=== PATIENT | female | born 2000 | race Caucasian/White ===

== ENCOUNTER 2020-12-08 21:48 | Observation (INO) | payer OTHER, SELFPAY ==
--- NOTE | 2020-12-08 20:52 | OBADM ---
This patient, Amber Sanchez, admitted to the OB room OB Post 117 for observation. Patient/family oriented to hospital policies and general routines including ID bracelet, bed and alarms, visiting hours, pain management, procedures, bathroom and other care routines, personal items, smoking policy, room service/diet, and visiting hours. Patient/Family are encouraged to report perceived risks to care and to ask questions if they do not understand what they are told or what they should do.
--- NOTE | 2020-12-08 21:05 | PC.NURSE ---
pt states she has been having episode of feeling like she is going to pass out. States she feel hot and then she has tightness in her chest. Pt states she is due 12/12/2020 but has not had care for the last 2 months because she was trying to switch doctors. Pt states she was being seen at Dr. Cadet office at [facility].
[2020-12-08 21:33] VITALS: RESP 18; TEMP 36.8
[2020-12-08 21:49] VITALS: PULSE 92; O2SAT 98
--- NOTE | 2020-12-08 21:49 | ECG_ITS ---
Measurements Intervals [place] Rate: 103 P: 46 KS: 128 QRS: 49 QRSD: 94 T: 30 QT: 345 QTc: 454 Interpretive Statements SINUS TACHYCARDIA INCOMPLETE RIGHT BUNDLE BRANCH BLOCK BORDERLINE ECG Electronically Signed On 12-09-2020 7:32:43 CDT by Casey Solis D.O.
[2020-12-08 21:54] VITALS: PULSE 102; O2SAT 98
[2020-12-08 22:00] VITALS: BP 118/76; PULSE 101
[2020-12-08 22:10] LABS: Basophils Percent Auto 0.4 % (0.2-1.2); Eosinophils Absolute Auto 0.1 K/mm3 (0-0.3); Eosinophils Percent Auto 1.4 % (0-4.4); Hemoglobin 12.3 g/dL (12.0-15.0); Immature Granulocyte Absolute 0.04 K/mm3 (0.00-0.031); Immature Granulocyte Percent A 0.4 % (0-0.5); Lymphocytes Absolute Auto 1.61 K/mm3 (0.9-3.2); Lymphocytes Percent Auto 16.8 % (18.3-44.2); Mean Corpuscular HGB Conc 33.2 g/dl (32-36); Mean Corpuscular Hemoglobin 31.1 pg (26-34); Mean Corpuscular Volume 93.7 fl (80-100); Mean Platelet Volume 11.4 fl (7.4-10.4); Monocytes Absolute Auto 0.6 K/mm3 (0.1-0.6); Monocytes Percent Auto 5.7 % (2.6-8.5); Neutrophils Absolute Auto 7.2 K/mm3 (1.3-6.7); Neutrophils Percent Auto 75.3 % (45.5-73.1); Platelet Count Result 213 k/mm3 (150-375); Red Blood Count 3.95 M/mm3 (4.2-5.4); Red Cell Distribution Width 12.3 % (11.5-14.5); White Blood Count 9.6 K/mm3 (4.5-10.0)
[2020-12-08 22:11] VITALS: BMI 32.6
--- NOTE | 2020-12-08 22:11 | PC.NURSE ---
RN called [facility] to obtain record. Per Roberta LEIJA they have no records for this pt.
[2020-12-08 22:15] VITALS: BP 120/73; PULSE 104
[2020-12-08 22:20] LABS: Alanine Aminotransferase 11 U/L (4-35); Albumin Level 3.2 g/dL (3.5-5.1); Alkaline Phosphatase 169 U/L (38-126); Anion Gap 4 mmol/L (8-16); Aspartate Amino Transferase 16 U/L (14-36); Bilirubin,Total < 0.1 mg/dL (0.2-1.3); Blood Urea Nitrogen 9 mg/dL (7-17); Calcium 8.9 mg/dL (8.4-10.2); Carbon Dioxide 23 mmol/L (22-30); Chloride 109 mmol/L (98-107); Estimated CRCL calculation 199 ml/min; Estimated Glomerular Filt Rate > 60; Glucose 85 mg/dL (65-105); Potassium 3.5 mmol/L (3.4-5.0); Sodium 136 mmol/L (137-145)
--- NOTE | 2020-12-08 22:39 | PC.NURSE ---
Updated Dr.Dalla Mitchell on pt lab results. Orders received to Discharge pt and have her call his office on Friday.
[2020-12-08 22:45] VITALS: BP 107/72; PULSE 95
--- NOTE | 2020-12-12 15:22 | PM.OBTRLD ---
OB - Triage/Final Diagnosis Visit Information Reason for evaluation: threatened labor Comments/Additional reasons for admission: I have assessed the risk for this patient, Amber Sanchez, and determined that she would benefit from observation care. Evaluation Laboratory results: Laboratory Tests 12/08/20 12/08/20 22:03 22:03 WBC 9.6 RBC 3.95 L Hgb 12.3 Hct 37.0 MCV 93.7 MCH 31.1 MCHC 33.2 RDW 12.3 Plt Count 213 MPV 11.4 H Immature Gran % (Auto) 0.4 Neut % (Auto) 75.3 H Lymph % (Auto) 16.8 L [place] % (Auto) 5.7 Eos % (Auto) 1.4 Baso % (Auto) 0.4 Lymph # (Auto) 1.61 [place] # (Auto) 0.6 Eos # (Auto) 0.1 Baso # (Auto) 0.0 Abs Immat Gran (auto) 0.04 H Absolute Neuts (auto) 7.2 H Absolute Nucleated RBC 0.0 Nucleated RBC % 0.0 Sodium 136 L Potassium 3.5 Chloride 109 H Carbon Dioxide 23 Anion Gap 4 L BUN 9 Creatinine 0.40 L Estim Creat Clear Calc 199 Estimated GFR > 60 Glucose 85 Calcium 8.9 Total Bilirubin < 0.1 L AST 16 ALT 11 Alkaline Phosphatase 169 H Total Protein 6.0 L Albumin 3.2 L
== END 2020-12-08 22:58 | disposition home or self-care (01) ==
LOC: ANHOBPP 21:48
PROVIDERS: Admitting Provider Obstetrics & Gynecology; PCP Internal Medicine; Visit Provider Obstetrics & Gynecology
DX: O47.9 False labor, unspecified (principal); Z3A.00 Weeks of gestation of pregnancy not specified
CPT/HCPCS: 36415; 80053; 85025; 93005; G0378; G0379

== ENCOUNTER 2020-12-10 07:52 | Inpatient (IN) | payer OTHER, SELFPAY ==
[2020-12-09 20:30] VITALS: BP 120/76; PULSE 84; RESP 16; TEMP 36.9
[2020-12-10] VITALS (58 sets, daily range): BP systolic 98–139; BP diastolic 52–95; PULSE 88–136; RESP 16; TEMP 36.6–36.9; O2SAT 96–100; BMI 33.0
--- NOTE | 2020-12-10 09:03 | PM.IMHP ---
H&P: HPI History of Present Illness Date/Time: 12/10/20 09:03 19-year-old 2 para 1 whose EDC is 427 by her history admitted through the ER as a walk-in with ruptured membranes at 5:30 a.m.. Her care has apparently been and all none. The only results we have or on ultrasound at 21 weeks consistent with her stated due date she does not know her group B strep status. She has had 1 previous term delivery Chief Complaint: labor at term Review of Systems Review of Systems: All systems reviewed & are unremarkable except as noted in HPI and below PMFSH Family History Family History Grandparent FH: kidney cancer Heart disease Diabetes mellitus Mother Diabetes mellitus Social History Social History Smoking packs per day: 0.5 Smoking cigarettes per day: 10.0 Years smoked: 7 Smoking pack-years: 3.50 Smoking status: Current every day smoker Tobacco type: cigarettes Second hand tobacco smoke exposure: Yes Substance use: never Spiritual care concerns: No Meds Home Medications and Allergies Home Medications Medication Instructions Recorded Confirmed Type Classic 1 tablet PO DAILY 12/08/20 12/08/20 History Allergies Allergy/AdvReac Type Severity Reaction Status Date / Time latex Allergy Hives Verified 12/09/20 15:11 Vital Signs Vital Signs - 24 hr 12/10/20 08:11 12/10/20 08:15 12/10/20 08:30 Temperature 98 F Pulse Rate 110 H 113 H Blood Pressure 128/77 113/86 12/10/20 08:45 12/10/20 09:00 Temperature Pulse Rate 100 99 Blood Pressure 98/79 L 119/76 Exam Const: General: no acute distress Eyes: General: appearance normal, both eyes and all related structures Neck: Neck: supple and no JVD Thyroid: thyroid normal Resp: Effort & Inspection: normal respiratory effort Auscultation: clear to auscultation bilaterally Cardio: Rate: regular rate Rhythm: regular rhythm GI: Inspection: non-distended GI Palp: Yes Soft to palpation, No Tenderness to palpation present (GI) and No Guarding due to palpation present (GI) Auscultation: normal bowel sounds : External Female Exam: normal external appearance and other (clear fluid) Speculum Exam - Cervix: Cervical os closed ( cervix 4cm by RN exam. FHTs reassuring contractions are irregular) Skin: General skin exam: no rashes or lesions noted Extrem: General: normal to inspection and no edema Psych: Mental Status: mental status grossly normal Affect: normal affect Assessment and Plan Additional Plan impression: Term with spontaneous rupture of membranes and active labor. Plan: Spontaneous vaginal delivery is expected. Group B strep prophylaxis undertaken secondary to unknown status. She states she would like to have an epidural
[2020-12-10 09:07] LABS: Basophils Percent Auto 0.3 % (0.2-1.2); Eosinophils Absolute Auto 0.1 K/mm3 (0-0.3); Eosinophils Percent Auto 0.8 % (0-4.4); Hematocrit 39.1 % (37.0-47.0); Hemoglobin 12.8 g/dL (12.0-15.0); Immature Granulocyte Absolute 0.08 K/mm3 (0.00-0.031); Immature Granulocyte Percent A 0.6 % (0-0.5); Lymphocytes Absolute Auto 1.51 K/mm3 (0.9-3.2); Lymphocytes Percent Auto 11.6 % (18.3-44.2); Mean Corpuscular HGB Conc 32.7 g/dl (32-36); Mean Corpuscular Hemoglobin 30.8 pg (26-34); Mean Platelet Volume 11.1 fl (7.4-10.4); Monocytes Absolute Auto 0.7 K/mm3 (0.1-0.6); Monocytes Percent Auto 5.4 % (2.6-8.5); Neutrophils Absolute Auto 10.6 K/mm3 (1.3-6.7); Neutrophils Percent Auto 81.3 % (45.5-73.1); Platelet Count Result 209 k/mm3 (150-375); Red Blood Count 4.16 M/mm3 (4.2-5.4); Red Cell Distribution Width 12.3 % (11.5-14.5); White Blood Count 13.1 K/mm3 (4.5-10.0)
[2020-12-10] MEDS: LACTATED RINGERS 1,000 ML 125 ML IV CONT ×2 (09:08→09:44)
[2020-12-10] MEDS: AMPICILLIN 2 GM/NS 100 ML 2 GM/100 ML BAG IVPB (09:09)
[2020-12-10 09:57] LABS: HIV 1/2 Ab P24 Ag Result Negative (Negative)
[2020-12-10 10:13] LABS: Rubella IgG Antibody 11.1 IU/ML
[2020-12-10 10:16] LABS: Hepatitis B Surface Antigen Negative (Negative)
[2020-12-10 11:08] LABS: Amphetamine Screen Urine Negative (Negative); Barbiturate Screen Urine Negative (Negative); Benzodiazepines Screen Urine Negative (Negative); Cannabinoid Screen Urine Negative (Negative); Cocaine Screen Urine Negative (Negative); Methadone Screen Urine Negative (Negative); Opiate Screen Urine Negative (Negative); Phencyclidine Screen Urine Negative (Negative)
[2020-12-10] MEDS: OXYTOCIN 30 UNITS/NS 500 ML 30 UNITS/500 ML BAG 999 UNITS IV CONT (11:32)
--- NOTE | 2020-12-10 11:40 | PM.OBPRVD ---
OB - Delivery Note Procedure Delivery date: 12/10/20 events: No Care Intrapartal events: None Induction method: none Delivery monitor: external FHT Route of delivery: Episiotomy description: None Laceration Description: None Specimen: No Quantitative Blood Loss (ml): 58 Anesthesia type: Epidural Disposition: floor [place] Baby Date of : 12/10/20 Time of : 11:29 Weeks of gestation at delivery: 39 Infant gender: Male Weight (pounds): 8 Weight (ounces): 12 position: Right Occiput Anterior Placenta delivery description: Spontaneous cord vessel description: 3 Vessels score one minute: 8 score five minutes: 9 Narrative: amp x 1 for unknown gbs
[2020-12-10] MEDS: OXYTOCIN 30 UNITS/NS 500 ML 30 UNITS/500 ML BAG 125 UNITS IV CONT (12:06)
--- NOTE | 2020-12-10 14:09 | PC.NURSE ---
Patient transferred to post room #284 per wheelchair from labor and delivery. Support person present. Oriented to unit, room, information board, rooming in, admission packet and security measures. Patient verbalizes understanding.
[2020-12-10] MEDS: IBUPROFEN 600 MG TABLET PO (15:57)
[2020-12-11 00:50] VITALS: BP 104/66; PULSE 80; RESP 16; TEMP 36.4
[2020-12-11 03:30] VITALS: BP 98/56; PULSE 76; RESP 16; TEMP 36.8
[2020-12-11] MEDS: IBUPROFEN 600 MG TABLET PO ×2 (03:52→16:08)
[2020-12-11 04:30] LABS: Hematocrit 33.2 % (37.0-47.0)
[2020-12-11 08:30] VITALS: BP 124/69; PULSE 72; PULSE 76; RESP 16; TEMP 37; O2SAT 100
[2020-12-11] MEDS: DOCUSATE SODIUM 100 MG CAPSULE PO (08:32)
[2020-12-11] MEDS: ACETAMINOPHEN 325 MG TABLET 650 MG PO (08:32)
--- NOTE | 2020-12-11 08:36 | WPDANLDPN2 ---
Anes-Prog Note L&D Date/Time: 12/11/20 08:36 Comfortable throughout: labor and delivery Neuraxial method: epidural Epidural/Spinal procedure site: clean & non-tender Neuro status: Neuro function grossly intact. Cardiovascular status: normal Respiratory status: normal Airway patency: baseline Mental status: baseline Post-Op hydration status: normal Vital Signs: Last Vital Signs Temp 36.8 C 12/11/20 03:30 Pulse 76 12/11/20 03:30 Resp 16 12/11/20 03:30 BP 98/56 L 12/11/20 03:30 Pulse Ox 100 12/10/20 11:23 Pain score (VAS): 0 I/O: Intake & Output 12/10/20 12/11/20 12/11/20 23:59 07:59 15:59 Intake Total 500 Balance 500 Post-procedural complaints: pruritis mild, no treatment Patient feedback: Patient satisfied with anesthetic care.
--- NOTE | 2020-12-11 08:46 | PM.OBPNVD ---
OB - PN: Subj Subjective Date/time seen: 12/11/20 08:46 Patient comments: no complaints and pain well controlled OB - PN: Obj Data Labs CBC & Chem 7: 12/11/20 03:51 Labs: Laboratory Results - last 24 hr 12/10/20 12/10/20 12/10/20 08:49 08:49 08:49 WBC 13.1 H RBC 4.16 L Hgb 12.8 Hct 39.1 MCV 94.0 MCH 30.8 MCHC 32.7 RDW 12.3 Plt Count 209 MPV 11.1 H Immature Gran % (Auto) 0.6 H Neut % (Auto) 81.3 H Lymph % (Auto) 11.6 L Simpson % (Auto) 5.4 Eos % (Auto) 0.8 Baso % (Auto) 0.3 Lymph # (Auto) 1.51 Simpson # (Auto) 0.7 H Eos # (Auto) 0.1 Baso # (Auto) 0.0 Abs Immat Gran (auto) 0.08 H Absolute Neuts (auto) 10.6 H Absolute Nucleated RBC 0.0 Nucleated RBC % 0.0 Urine Opiates Screen Urine Methadone Screen Ur Barbiturates Screen Ur Phencyclidine Scrn Ur Amphetamine Screen U Benzodiazepines Scrn Urine Cocaine Screen U Cannabinoids Screen Hep Bs Antigen HIV 1&2 Ab/P24 Ag 4thGn Negative Rubella IgG Antibody 11.1 Blood Type Antibody Screen Screen Baby's Blood Type Baby's BRODY Doses of RhIg Required 12/10/20 12/10/20 12/10/20 08:49 08:49 08:49 WBC RBC Hgb Hct MCV MCH MCHC RDW Plt Count MPV Immature Gran % (Auto) Neut % (Auto) Lymph % (Auto) Simpson % (Auto) Eos % (Auto) Baso % (Auto) Lymph # (Auto) Simpson # (Auto) Eos # (Auto) Baso # (Auto) Abs Immat Gran (auto) Absolute Neuts (auto) Absolute Nucleated RBC Nucleated RBC % Urine Opiates Screen Negative Urine Methadone Screen Negative Ur Barbiturates Screen Negative Ur Phencyclidine Scrn Negative Ur Amphetamine Screen Negative U Benzodiazepines Scrn Negative Urine Cocaine Screen Negative U Cannabinoids Screen Negative Hep Bs Antigen Negative HIV 1&2 Ab/P24 Ag 4thGn Rubella IgG Antibody Blood Type O Negative Antibody Screen Negative Screen Baby's Blood Type Baby's BRODY Doses of RhIg Required 12/11/20 12/11/20 03:50 03:51 WBC RBC Hgb 11.0 L Hct 33.2 L MCV MCH MCHC RDW Plt Count MPV Immature Gran % (Auto) Neut % (Auto) Lymph % (Auto) Simpson % (Auto) Eos % (Auto) Baso % (Auto) Lymph # (Auto) Simpson # (Auto) Eos # (Auto) Baso # (Auto) Abs Immat Gran (auto) Absolute Neuts (auto) Absolute Nucleated RBC Nucleated RBC % Urine Opiates Screen Urine Methadone Screen Ur Barbiturates Screen Ur Phencyclidine Scrn Ur Amphetamine Screen U Benzodiazepines Scrn Urine Cocaine Screen U Cannabinoids Screen Hep Bs Antigen HIV 1&2 Ab/P24 Ag 4thGn Rubella IgG Antibody Blood Type O Negative Antibody Screen TNP Screen Negative Baby's Blood Type O pos Baby's BRODY Negative Doses of RhIg Required 1 OB - PN A/P Plan day: 1 Plan: routine care Time Spent With Patient Time: Total time spent is greater than 50% in coordination of care (as documented) at patient's floor/unit and/or counseling patient: Time with patient: less than 15 minutes Review of Systems Review of Systems: All systems reviewed & are unremarkable except as noted in HPI and below Exam Const: General: no acute distress Eyes: General: appearance normal, both eyes and all related structures Neck: Neck: supple and no JVD Thyroid: thyroid normal Resp: Effort & Inspection: normal respiratory effort Auscultation: clear to auscultation bilaterally Cardio: Rate: regular rate Rhythm: regular rhythm GI: Inspection: non-distended GI Palp: Yes Soft to palpation, No Tenderness to palpation present (GI) and No Guarding due to palpation present (GI) Auscultation: normal bowel sounds : General: Yes bladder normal to palpation External Female Exam: normal external appearance Speculum Exam - Vagina:
--- NOTE | 2020-12-11 11:32 | PCCCNOTE ---
Care Coordination Consult: Met with pt. and pt.'s mother this morning. Pt. lives at home alone. This is her second child. FOB name is José. Pt. reports family support. Has all necessary supplies at home for baby including a crib, carseat, clothing, diapers, and bottles. Pt. plans to bottlefeed. Pt. plans to utilize [facility] services at discharge, will go to [facility] office. Pt. was provided resources. Pt. reports she has care through [facility]. Nursing is aware and requesting records. Pt. upset regarding visitation policy, nursing is also aware. Denies any care coordination needs.
[2020-12-11 11:36] LABS: Rapid Plasma Reagin Non-Reactive (NonReactive)
[2020-12-11] MEDS: RHO(D) IMMUNE GLOBULIN 300 MCG/2 ML SYRINGE IM (11:53)
[2020-12-11 16:00] VITALS: BP 125/77; PULSE 76; PULSE 87; RESP 16; TEMP 36.5; O2SAT 100; O2SAT 99
[2020-12-11 19:30] VITALS: BP 120/84; PULSE 86; RESP 15; TEMP 36.7; O2SAT 98
[2020-12-12] MEDS: IBUPROFEN 600 MG TABLET PO (01:43)
--- NOTE | 2020-12-12 07:47 | P.DS_ITS ---
DS: Admitting Diagnosis Admitting Diagnosis Admitting Diagnosis: term iup minimal pnc DS: Summary Hospital Course Hospital Course: the patient was admitted at term with a walk-in patient. She underwent spontaneous vaginal delivery which was unremarkable. Her hospital course was unremarkable. She remained afebrile. She was up, ambulating, voiding without difficulty, and generally without complaints Time Spent with Patient Time attestation: Total time spent providing and/or coordinating discharge services: Exam Const: General: no acute distress Eyes: General: appearance normal, both eyes and all related structures Neck: Neck: supple and no JVD Thyroid: thyroid normal Resp: Effort & Inspection: normal respiratory effort Auscultation: clear to auscultation bilaterally Cardio: Rate: regular rate Rhythm: regular rhythm GI: Inspection: non-distended GI Palp: Yes Soft to palpation, No Tenderness to palpation present (GI) and No Guarding due to palpation present (GI) Auscultation: normal bowel sounds : General: Yes bladder normal to palpation External Female Exam: normal external appearance Speculum Exam - Vagina: normal vaginal discharge and No vaginal bleeding Speculum Exam - Cervix: nontender Bimanual exam- vagina & uterus: bladder normal to palpation and No Cervical tenderness present OB/ external & speculum: No vaginal bleeding Skin: General skin exam: no rashes or lesions noted Extrem: General: normal to inspection and no edema Psych: Mental Status: mental status grossly normal Affect: normal affect DS: Data Data Completed and Pending Labs on day of discharge: Labs from last 24 hours 12/11/20 12/10/20 03:50 08:49 RPR Non-reactive Blood Type O Negative Antibody Screen TNP Screen Negative Baby's Blood Type O pos Baby's BRODY Negative Doses of RhIg Required 1 Discharge Plan Discharge Attending physician on discharge: Ankit Link Discharging Clinician: Ankit Link Patient Disposition: Home, Self-Care Activity: may shower, no straining and pelvic rest Diet: heart healthy Wound Care Instructions: follow printed instructions Patient Instructions: Antibiotic Form Stand Alone Forms: General Discharge Information Follow-up/Referrals: Ankit Link MD [Physician] - Discharge Medications: Continued Classic 28 mg iron- 800 mcg Tablet 1 tablet PO DAILY RF: 0 Date of admission: 12/10/20 07:52 Primary Care Provider: KristoferRomaine Admitting Provider: Ankit Link Attending physician on admission: Ankit Link Condition: Stable
--- NOTE | 2020-12-12 07:48 | PM.OBPNVD ---
OB - PN: Subj Subjective Date/time seen: 12/12/20 07:48 Patient comments: no complaints and pain well controlled OB - PN: Obj Data Labs CBC & Chem 7: 12/11/20 03:51 Labs: Laboratory Results - last 24 hr 12/10/20 12/11/20 08:49 03:50 RPR Non-reactive Blood Type O Negative Antibody Screen TNP Screen Negative Baby's Blood Type O pos Baby's BRODY Negative Doses of RhIg Required 1 OB - PN A/P Plan day: 2 Plan: routine care, discharge home and follow up 6 weeks Time Spent With Patient Time: Total time spent is greater than 50% in coordination of care (as documented) at patient's floor/unit and/or counseling patient: Time with patient: less than 15 minutes Review of Systems Review of Systems: All systems reviewed & are unremarkable except as noted in HPI and below Exam Const: General: no acute distress Eyes: General: appearance normal, both eyes and all related structures Neck: Neck: supple and no JVD Thyroid: thyroid normal Resp: Effort & Inspection: normal respiratory effort Auscultation: clear to auscultation bilaterally Cardio: Rate: regular rate Rhythm: regular rhythm GI: Inspection: non-distended GI Palp: Yes Soft to palpation, No Tenderness to palpation present (GI) and No Guarding due to palpation present (GI) Auscultation: normal bowel sounds : General: Yes bladder normal to palpation External Female Exam: normal external appearance Speculum Exam - Vagina: normal vaginal discharge and No vaginal bleeding Speculum Exam - Cervix: nontender Bimanual exam- vagina & uterus: bladder normal to palpation and No Cervical tenderness present OB/external & speculum: No vaginal bleeding Skin: General skin exam: no rashes or lesions noted Extrem: General: normal to inspection and no edema Psych: Mental Status: mental status grossly normal Affect: normal affect
[2020-12-12 07:50] VITALS: BP 104/70; PULSE 75; RESP 18; TEMP 36.8; O2SAT 98
[2020-12-12 08:00] VITALS: PULSE 75; RESP 18; O2SAT 98
== END 2020-12-12 12:39 | disposition home or self-care (01) | DRG 560 ==
LOC: ANHLDR 08:49 → ANHOB2 14:12
PROVIDERS: Admitting Provider Obstetrics & Gynecology; PCP Internal Medicine; Visit Provider Obstetrics & Gynecology
DX: O99.334 Smoking (tobacco) complicating childbirth (principal); Z37.0 Single live birth; Z3A.39 39 weeks gestation of pregnancy; F17.210 Nicotine dependence, cigarettes, uncomplicated
CPT/HCPCS: 36415; 80307; 85014; 85018; 85025; 85461; 86592; 86703; 86762; 86850; 86900; 86901; 87340; 90384; A9270; G0432; J0290; J2590; J2790; J2795; J7120